=== PATIENT | male | born 1995 | race Caucasian/White ===

== ENCOUNTER 2024-02-18 14:41 | Inpatient (IN) | payer OTHER ==
[2024-02-18 16:04] VITALS: RESP 16; BMI 20.7
[2024-02-18] MEDS ORDERED: IBUPROFEN 400 MG TABLET (FP) PO PRN (16:38)
[2024-02-18] MEDS ORDERED: BENZOCAINE/MENTHOL (CHLORASEPTIC ) LOZENGE MM PRN (16:38)
[2024-02-18] MEDS ORDERED: NALOXONE HCL 0.4 MG/ML VIAL IM PRN (16:38)
[2024-02-18] MEDS ORDERED: IBUPROFEN 600 MG TABLET (FP) PO PRN (16:38)
[2024-02-18] MEDS ORDERED: BISMUTH SUBSALICYLATE 524 MG/30 ML PO PRN (16:38)
[2024-02-18] MEDS ORDERED: NICOTINE POLACRILEX 2 MG LOZENGE BC PRN (16:38)
[2024-02-18] MEDS ORDERED: guaiFENesin 600 MG TABLET.ER (FP) PO PRN (16:38)
[2024-02-18] MEDS ORDERED: LOPERAMIDE HCL 2 MG CAPSULE PO PRN (16:38)
[2024-02-18] MEDS ORDERED: BENZONATATE 200 MG CAPSULE PO PRN (16:38)
[2024-02-18] MEDS ORDERED: MAGNESIUM HYDROX 2400MG/30ML ORAL SUSPENSION 30 ML CUP PO PRN (16:38)
[2024-02-18] MEDS ORDERED: ONDANSETRON *ODT* 4 MG TABLET SL PRN (16:38)
[2024-02-18] MEDS ORDERED: MAG HYDROX/AL HYDROX/SIMETH 30 ML UNIT-DOSE CUP PO PRN (16:38)
[2024-02-18] MEDS ORDERED: NICOTINE POLACRILEX 2 MG GUM BUC PRN (16:38)
[2024-02-18] MEDS ORDERED: P-EPHED 60MG/TRIPROLIDI 2.5MG TABLET PO PRN (16:38)
[2024-02-18] MEDS ORDERED: POLYETHYLENE GLYCOL (HEALTHYLAX) 3350 17 GM PACKET PO PRN (16:38)
[2024-02-18] MEDS ORDERED: DICYCLOMINE HCL 10 MG CAPSULE PO PRN (16:38)
[2024-02-18] MEDS ORDERED: ACETAMINOPHEN 325 MG TABLET (FP) PO PRN (16:38)
[2024-02-18] MEDS ORDERED: NALOXONE HCL (KLOXXADO) 8 MG SPRAY NS PRN (16:38)
[2024-02-18] MEDS: hydrOXYzine PAMOATE 25 MG CAPSULE (FP) PO PRN (22:46)
[2024-02-18] MEDS: METHOCARBAMOL 500 MG TABLET PO PRN (22:46)
[2024-02-18] MEDS: THIAMINE 100 MG TABLET PO SCH (22:46)
[2024-02-18] MEDS: MELATONIN 5 MG TABLETS PO SCH (22:46)
[2024-02-19] MEDS: PRENATAL VITAMINS W/ FOLIC ACID TABLET (FP) PO SCH (09:55)
[2024-02-19 11:45] LABS: POTASSIUM 4.1 mmol/L (3.5-5.1)
[2024-02-19 11:50] LABS: ALBUMIN 3.6 g/dl (3.4-5.0); BLOOD UREA NITROGEN 11.6 mg/dL (7-18); CALCIUM 8.8 mg/dL (8.5-10.1)
[2024-02-19 11:53] LABS: CREATININE 0.7 mg/dL (0.55-1.3)
[2024-02-19] MEDS: PNEUMOC 20-VAL CONJ-DIP CRM/PF 0.5 ML SYRINGE IM ONE (11:53)
[2024-02-19 11:55] LABS: BILIRUBIN,TOTAL 0.3 mg/dL (0.2-1); TOT PROT 6.3 g/dl (6.4-8.2)
[2024-02-19 11:57] LABS: HEMATOCRIT 42.6 % (35.4-49); HEMOGLOBIN 14.7 GM/dL (11.7-16.9); MCH 29.2 pg (25.7-33.7); MCHC 34.5 g/dl (32.0-35.9); MEAN CELL VOLUME 84.5 fl (80-96); MEAN PLT VOLUME 7.9 fl (7.5-11.1); PLATELET COUNT 298 10^3/uL (134-434); RBC 5.04 M/mm3 (4.00-5.60); RDW 13.3 % (11.9-15.9); WHITE BLOOD COUNT 7.5 K/mm3 (4.0-10.0)
[2024-02-19 12:45] LABS: HIV INTERPRETATION NEGATIVE (NEGATIVE)
[2024-02-19 13:26] VITALS: BP 139/89; PULSE 84; TEMP 97.7
== END 2024-02-19 15:50 | disposition home or self-care (01) | DRG 773 ==
LOC: YASAS 14:41 → Y6N 17:32
PROVIDERS: ADMIT Allergy & Immunology; ATTEND Surgery
PROC: HZ2ZZZZ Detoxification Services for Substance Abuse Treatment (ICD-10-PCS; principal; 2024-02-18)
DX: F11.20 Opioid dependence, uncomplicated (principal); F14.20 Cocaine dependence, uncomplicated; F17.210 Nicotine dependence, cigarettes, uncomplicated; Z86.19 Personal history of other infectious and parasitic diseases
CPT/HCPCS: 36415; 80053; 80305; 80307; 85027; 86780; 87389; 90677; 93005; 93010; G0009

== ENCOUNTER 2024-12-09 11:46 | Inpatient (IN) | payer OTHER ==
[2024-12-09 12:57] VITALS: BMI 23.6
[2024-12-09] MEDS ORDERED: IBUPROFEN 400 MG TABLET (FP) PO PRN (13:04)
[2024-12-09] MEDS ORDERED: NICOTINE POLACRILEX 2 MG LOZENGE BC PRN (13:04)
[2024-12-09] MEDS ORDERED: BISMUTH SUBSALICYLATE 524 MG/30 ML PO PRN (13:04)
[2024-12-09] MEDS ORDERED: guaiFENesin 600 MG TABLET.ER (FP) PO PRN (13:04)
[2024-12-09] MEDS ORDERED: ONDANSETRON *ODT* 4 MG TABLET SL PRN (13:04)
[2024-12-09] MEDS ORDERED: BENZOCAINE/MENTHOL (CHLORASEPTIC ) LOZENGE MM PRN (13:04)
[2024-12-09] MEDS ORDERED: NALOXONE (NARCAN) HCL 4 MG/0.1 ML SPRAY NS PRN (13:04)
[2024-12-09] MEDS ORDERED: NICOTINE POLACRILEX 2 MG GUM BUC PRN (13:04)
[2024-12-09] MEDS ORDERED: MAGNESIUM HYDROX 2400MG/30ML ORAL SUSPENSION 30 ML CUP PO PRN (13:04)
[2024-12-09] MEDS ORDERED: MAG HYDROX/AL HYDROX/SIMETH 30 ML UNIT-DOSE CUP PO PRN (13:04)
[2024-12-09] MEDS ORDERED: LOPERAMIDE HCL 2 MG CAPSULE PO PRN (13:04)
[2024-12-09] MEDS ORDERED: DICYCLOMINE HCL 10 MG CAPSULE PO PRN (13:04)
[2024-12-09] MEDS ORDERED: ACETAMINOPHEN 325 MG TABLET (FP) PO PRN (13:04)
[2024-12-09] MEDS ORDERED: IBUPROFEN 600 MG TABLET (FP) PO PRN (13:04)
[2024-12-09] MEDS ORDERED: BENZONATATE 200 MG CAPSULE PO PRN (13:04)
[2024-12-09] MEDS ORDERED: POLYETHYLENE GLYCOL (HEALTHYLAX) 3350 17 GM PACKET PO PRN (13:04)
[2024-12-09] MEDS: SERTRALINE HCL 50 MG TABLET (FP) PO SCH (15:24)
[2024-12-09] MEDS: METHOCARBAMOL 500 MG TABLET PO PRN (22:25)
[2024-12-09] MEDS: THIAMINE 100 MG TABLET PO SCH (22:25)
[2024-12-09] MEDS: MELATONIN 5 MG TABLETS PO SCH (22:25)
[2024-12-09] MEDS: ARIPiprazole 15 MG TABLET PO SCH (22:25)
[2024-12-10] MEDS: PRENATAL VITAMINS W/ FOLIC ACID TABLET (FP) PO SCH (09:26)
[2024-12-10 11:20] LABS: HEMATOCRIT 36.2 % (35.4-49); HEMOGLOBIN 12.2 GM/dL (11.7-16.9); MCH 27.6 pg (25.7-33.7); MCHC 33.6 g/dl (32.0-35.9); MEAN CELL VOLUME 82.4 fl (80-96); MEAN PLT VOLUME 7.2 fl (7.5-11.1); PLATELET COUNT 308 10^3/uL (134-434); RDW 15.4 % (11.9-15.9); WHITE BLOOD COUNT 5.1 K/mm3 (4.0-10.0)
[2024-12-10 11:24] LABS: POTASSIUM 3.9 mmol/L (3.5-5.1)
[2024-12-10 11:34] LABS: CALCIUM 8.6 mg/dL (8.5-10.1); CREATININE 0.8 mg/dL (0.55-1.3)
[2024-12-10 11:35] LABS: ALBUMIN 3.3 g/dl (3.4-5.0); BLOOD UREA NITROGEN 11.6 mg/dL (7-18)
[2024-12-10 11:36] LABS: BILIRUBIN,TOTAL 0.4 mg/dL (0.2-1); TOT PROT 6.2 g/dl (6.4-8.2)
[2024-12-10] MEDS: hydrOXYzine PAMOATE 25 MG CAPSULE (FP) PO PRN (17:53)
[2024-12-10] MEDS: cloNIDine HCL 0.1 MG TABLET PO PRN (17:53)
[2024-12-11 09:41] VITALS: BP 139/80; PULSE 82; RESP 18; TEMP 97.6
== END 2024-12-11 11:07 | disposition home or self-care (01) | DRG 773 ==
LOC: YASAS 11:46 → Y6N 13:17
PROVIDERS: ADMIT Allergy & Immunology; ATTEND Allergy & Immunology
PROC: HZ2ZZZZ Detoxification Services for Substance Abuse Treatment (ICD-10-PCS; principal; 2024-12-09)
DX: F11.20 Opioid dependence, uncomplicated (principal); F14.20 Cocaine dependence, uncomplicated; F17.210 Nicotine dependence, cigarettes, uncomplicated; F19.282 Other psychoactive substance dependence with psychoactive substance-induced sleep disorder; F20.9 Schizophrenia, unspecified; Z56.0 Unemployment, unspecified; Z59.00 Homelessness unspecified
CPT/HCPCS: 36415; 80053; 80305; 80307; 85027; 86780; 93005; 93010